=== PATIENT | female | born 1945 | race Caucasian/White ===

== ENCOUNTER 2017-10-10 12:19 | Emergency (ER) | payer MEDICARE ==
[~2017-10-10] VITALS: Ht 167.6 cm; Wt 99.8 kg
[2017-10-10] MEDS ORDERED: LEVOTHYROXINE88 MCG ORAL (12:31)
[2017-10-10] MEDS ORDERED: SIMVASTATIN20 MG ORAL (12:31)
[2017-10-10 12:32] VITALS: BP 148/81
[2017-10-10] MEDS ORDERED: Cyclobenzaprine 10mg Tab ORAL ONE (13:15)
[2017-10-10 13:43] LABS: BASOPHILS % (AUTO) 0.8 % (0.0-2.0); EOSINOPHILS % (AUTO) 0.8 % (0.0-3.0); HEMATOCRIT 41.7 % (37.0-47.0); HEMOGLOBIN 14.7 G/DL (12.0-16.0); LYMPHOCYTES % (AUTO) 23.4 % (20.0-45.0); MEAN CORPUSCULAR VOLUME 89 FL (80-99); PLATELET COUNT 210 K/UL (150-450); RED CELL DISTRIBUTION WIDTH 11.1 % (11.6-14.8); WHITE BLOOD COUNT 9.7 K/UL (4.8-10.8)
[2017-10-10 13:49] LABS: APPEARANCE,URINE CLEAR; BILIRUBIN, URINE NEGATIVE (NEGATIVE); COLOR,URINE PALE YELLOW; GLUCOSE, URINE (UA) NEGATIVE (NEGATIVE); KETONES,URINE NEGATIVE (NEGATIVE); LEUKOCYTE ESTERASE ,URINE NEGATIVE (NEGATIVE); NITRITE,URINE NEGATIVE (NEGATIVE); PH,URINE 6 (4.5-8.0); PROTEIN,URINE 1+ (NEGATIVE); UROBILINOGEN,URINE NORMAL MG/DL (0.0-1.0)
[2017-10-10 13:51] LABS: ANION GAP 9 mmol/L (5-15); BLOOD UREA NITROGEN 22 mg/dL (7-18); CALCIUM 9.7 MG/DL (8.5-10.1); CARBON DIOXIDE 27 MMOL/L (21-32); CHLORIDE 104 MMOL/L (98-107); CREATININE 1.2 MG/DL (0.55-1.30); SODIUM 139 MMOL/L (136-145)
--- NOTE | 2017-10-10 14:11 | Diagnostic Imaging Report ---
Indication: Pelvic pain Technique: One view of the pelvis Comparison: none Findings: No acute fractures. No dislocations. Joint spaces are preserved. Impression: No acute process Note, however, that in elderly osteoporotic patients, nondisplaced pelvic fractures can easily be occult. Consider cross-sectional imaging if there is high clinical suspicion
--- NOTE | 2017-10-10 14:18 | Emergency Room Report ---
History of Present Illness General Chief Complaint: Pain Source: Patient Present Illness HPI 71-year-old female presents with right buttock area pain for the past few days, worse with changing position, no relief with ibuprofen, pain does not radiate anywhere Pain is aching and constant, no symptoms related to the urinary, gastrointestinal systems, denies fevers, denies trauma, reports no use of anticoagulants, only medical problems or hypothyroidism and high cholesterol Allergies: Coded Allergies: No Known Allergies (Verified , 10/10/17) Patient History Past Medical History: see triage record Last Menstrual Period: [place] Now: No Reviewed Nursing Documentation: PMH: Agreed; PSxH: Agreed Nursing Documentation-PMH Past Medical History: No Stated History Review of Systems All Other Systems: negative except mentioned in HPI Physical Exam Vital Signs Date Time Temp Pulse Resp B/P (MAP) Pulse Ox O2 Delivery O2 Flow Rate FiO2 10/10/17 12:22 79 18 148/81 98 Room Air Sp02 EP Interpretation: reviewed, normal General Appearance: no apparent distress, alert, non-toxic Head: normocephalic Eyes: bilateral eye normal inspection, bilateral eye PERRL, bilateral eye EOMI ENT: normal ENT inspection, hearing grossly normal, normal pharynx, no angioedema, normal voice, moist mucus membranes Neck: normal inspection, full range of motion, supple, supple/symm/no masses Respiratory: chest non-tender, lungs clear, normal breath sounds, chest symmetrical, palpation of chest normal Cardiovascular #1: normal peripheral pulses, regular rate, rhythm Cardiovascular #2: 2+ radial (R), 2+ radial (L) Gastrointestinal: normal inspection, non tender, soft, no mass, no guarding, no rebound Rectal: deferred Genitourinary: normal inspection, no CVA tenderness Musculoskeletal: back normal, gait/station normal, normal range of motion, non- tender, no calf tenderness, other - Negative straight leg raising test bilaterally Neurologic: alert, responsive, aemt III-XII nml as tested, motor strength/tone normal, sensory intact, speech normal Psychiatric: judgement/insight normal, memory normal, mood/affect normal, no suicidal/homicidal ideation Skin: normal color, no rash, warm/dry, normal turgor Lymphatic: no adenopathy Medical Decision Making Diagnostic Impression: Primary Impression: Pain Additional Impression: Hematuria ER Course Patient with uncomplicated right buttock area musculoskeletal pain, had a normal x-ray, urinalysis with hematuria, normal basic labs [place] some improvement Flexeril, given steroids as well as gabapentin, do not suspect nerve pain any longer as it is not sciatica type Will discharge patient, inform her of her hematuria, and need to follow up as an outpatient primary care for repeat urinalysis Today her CT scan is down, however I do not suspect the patient needs an emergent ultrasound of her urinary tract as her pain is not colicky and is not consistent with renal colic Last Vital Signs Date Time Temp Pulse Resp B/P (MAP) Pulse Ox O2 Delivery O2 Flow Rate FiO2 10/10/17 12:32 18 148/81 98 Room Air 10/10/17 12:22 79 Disposition: HOME, SELF-CARE Condition: Stable LULY TODD M.D Oct 10, 2017 14:18
[2017-10-10] MEDS ORDERED: NORCO 5-325 TA1 EACH ORAL (14:20)
[2017-10-10] MEDS ORDERED: CYCLOBENZAPRINE10 MG ORAL (14:20)
[2017-10-10 14:38] VITALS: BP 137/80
== END 2017-10-10 14:40 | disposition home or self-care (01) ==
LOC: EMR 14:39
DX: M54.5 Low back pain (principal); R31.9 Hematuria, unspecified
CPT/HCPCS: 36415; 72170; 80048; 81001; 85025; 99283; J8540